=== PATIENT | female | born 1940 | race Caucasian/White ===

== ENCOUNTER 2016-09-07 10:22 | Day surgery (SDC) | payer MEDICARE, OTHER ==
[~2016-09-07] VITALS: Ht 177.8 cm; Wt 92.7 kg
--- NOTE | ~2016-09-07 | CATH ---
Cardiac Diagnostic Report Demographics Patient Name BRITTANI Lorenzana Gender Female Date of 1940 Age 76 year(s) Patient Number [id number] Date of Study 09/07/2016 Visit Number [id number] Room Number Corporate ID Ht 172.72 cm Wt 93.44 kg Accession Number [id number] BSA 2.07 m kg/m Referring Iqra Arce MD Primary Physician Physician Nikos Up MD Performing Iqra Arce MD Secondary Physician Physician Diagnostic Iqra Arce MD Assisting Physician Physician Interventional Physician Web Administrator Physician Findings and Conclusions Diagnostic Findings and Conclusion Normal coronary angiogram. Normal LVEDP. Elevated wedge pressure consistent with mitral stenosis. No sign of significant mitral regurgitation on waveforms. Diagnostic Recommendations Consultation with CT surgery regarding mitral stenosis. Procedure Description The patient was brought to the diagnostic cardiac catheterization-EP laboratory in the fasting, non-sedated state. Informed consent was obtained in the written and verbal form after the risks and benefits were explained. The patient had no further questions and agreed to proceed. The planned puncture-incision site(s) were shaved and prepped with ChloraPrep and draped in the usual sterile manner. Conscious sedation, supplemental oxygen, and pain control medications were delivered by a registered nurse under physician guidance. Surface ECG rhythm, blood pressure measurement, and pulse oximetry were monitored throughout the procedure. ANMOL. A transesophageal probe was inserted by the attending overhead crane technician without difficulty. After imaging was complete he transesophageal probe was removed. Arterial access. The access site was infiltrated with lidocaine. The right radial vessel was entered with the Seldinger technique. A sheath was advanced into the vessel and used for catheter placement. Venous access. The access site was infiltrated with 1% lidocaine. The vessel was entered with the Seldinger technique. A 6F radial sheath was advanced into the vessel and used for catheter placement. Right heart catheterization. A 7F [place]ore[place] catheter was successfully advanced to the right atrium, right ventricle, pulmonary artery, and pulmonary artery wedge position under fluoroscopic guidance. Resting hemodynamics were obtained. Measurements included pressures, arterial and venous oxygen saturation samples, and cardiac output. The [place] was removed without difficulty. Selective left coronary angiography. A 6F JL 3.5 catheter was advanced into the left coronary vessel ostium under Fluoroscopic guidance. Contrast was injected by hand. Images were obtained in multiple projections. Selective right coronary angiography. A 6F FR4 catheter was advanced into the right coronary vessel ostium under fluoroscopic guidance. Contrast was injected by hand. Images were obtained in multiple projections. Left heart catheterization. A 6F pigtail catheter was advanced across the aortic valve to the left ventricle under fluoroscopic guidance. Resting hemodynamics were obtained. Arterial and Venous hemostasis was achieved using a TR band and manual pressure. The patient was transferred to a regular nursing floor via cart accompanied by a nurse. The patient left the laboratory in stable condition. Diagnostic Cath Status: Elective Procedure Procedure Type Diagnostic procedure:Angiography:, Right and Left Heart Cath, Coronary Angios Indications: Chest pain, Mitral Regurgation, Mitral Insufficiency, Atrial fibrillation, Hyperlipidemia and Hypertension. The procedure was explained in detail to the patient. Risks, complications and alternative treatments were reviewed. Written consent was obtained. Medications Reviewed with Patient prior to Procedure. Complications: No Complication. Angiographic Findings Dominance: Right Cardiac Arteries and Lesion Findings LMCA: Normal (0% Stenosis). LAD: Normal (0% Stenosis). LCx: Normal (0% Stenosis). RCA: Normal (0% Stenosis). Procedure Data Procedure Date Date: 09/07/2016Start: 01:10 PMEnd: 02:57 PM Entry Locations - Percutaneous access was performed through the Right Radial artery (Primary location). A 6 Fr sheath was inserted. Hemostasis was successfully obtained using a TR band. - Percutaneous access was performed through the Right Femoral vein. A 7 Fr sheath was inserted. Hemostasis was successfully obtained using Manual Compression. Procedure Medications Order and Administration + + +-------+--------+ !Time !Medication !Dosage !Route ! + + +-------+--------+ !09/07/2016 !Versed !2 mg !I.V. ! !01:12 PM ! ! ! ! + + +-------+--------+ !09/07/2016 !Fentanyl !50 mcg ! ! !01:13 PM ! ! ! ! + + +-------+--------+ !09/07/2016 !Sodium Chloride !10 ml !I.V. ! !01:13 PM ! ! ! ! + + +-------+--------+ !09/07/2016 !Oxygen !4 l/min!NC ! !01:14 PM ! ! ! ! + + +-------+--------+ !09/07/2016 !Versed !2 mg !I.V. ! !01:15 PM ! ! ! ! + + +-------+--------+ !09/07/2016 !Fentanyl !25 mcg ! ! !01:15 PM ! ! ! ! + + +-------+--------+ !09/07/2016 !SF Radial Cocktail: 200mcg Nitro, 2.5 mg ! !I.A. ! !02:00 PM !Verapamil, 5000u Heparin ! ! ! + + +-------+--------+ !09/07/2016 !Versed !2 mg !I.V. ! !02:33 PM ! ! ! ! + + +-------+--------+ !09/07/2016 !Fentanyl !25 mcg !I.V. ! !02:33 PM ! ! ! ! + + +-------+--------+ Devices Used - ACATH 6F FR4 CATHETER 100CMwas used for:Right coronary angiography. - ACATH 6FR PIG 145 110CM CATHETERwas used for:LV Pressures. - ACATH 6FR FL3.5 CATHETER 100CMwas used for:Left coronary angiography. Contrast Material - Isovue 59090 ml Fluoroscopy Time: Diagnostic: 6:24 minutes. Total: 6:24 minutes. Fluoroscopy Dose: Diagnostic: 294 mGy. Total: 294 mGy. Estimated Blood Loss: 15 ml. Medical History Allergies - Other:(Tetanus vaccines and toxoid). Risk Factors The patient risk factors include:hypertension, last creatinine: 1.1 mg/dl, creatinine clearance: 63.18 ml/min and dyslipidemia. Admission Data Admission Date: 09/07/2016 Admission Time: 10:22 AM Insurance Payors: Medicare. Clinical Evaluation Leading to Procedure - There were no CAD presentation symptoms. - There were no anginal symptoms. Anti-anginal medications were prescribed during the past two weeks. The medications are: Beta Blockers and Ca channel Blockers. Hemodynamics Condition: Rest O2 Consumption: Estimated: 191.86Heart Rate: 76 bpm Oxygen Saturation +--------+-----+----+ +---+ + !Location!pCO2 !pO2 !% Saturation !Hgb!O2 Content ! +--------+-----+----+ +---+ + !LV ! ! !86.3 !13 ! ! +--------+-----+----+ +---+ + !LV ! ! !87.2 !13 ! ! +--------+-----+----+ +---+ + !PA ! ! !62.5 !13 ! ! +--------+-----+----+ +---+ + !PA ! ! !63.2 !13 ! ! +--------+-----+----+ +---+ + !AO ! ! !92 !13 ! ! +--------+-----+----+ +---+ + Pressures (mmHg) +-----+ + !Site !Pressure ! +-----+ + !AO !/ (-33) ! +-----+ + !RA !03/17 (7) ! +-----+ + !AO !/ (33) ! +-----+ + !RV !45/0 ,9 ! +-----+ + !AO !/ () ! +-----+ + !PA !50/12 (29) ! +-----+ + !AO !/ () ! +-----+ + !PCW ! (17) ! +-----+ + !AO !/ () ! +-----+ + !PA ! () ! +-----+ + !AO !/ () ! +-----+ + !PCW ! () ! +-----+ + !LV !155/4 ,11 ! +-----+ + !PA !50/20 (33) ! +-----+ + !LV !137/2 ,11 ! +-----+ + !PCW !26/32 (21) ! +-----+ + !LV !142/2 ,9 ! +-----+ + !PA !30/16 (21) ! +-----+ + !LV !148/3 ,10 ! +-----+ + !RV !49/4 ,9 ! +-----+ + !AO !148/60 (98) ! +-----+ + !LV !149/4 ,18 ! +-----+ + !AO !132/62 (86) ! +-----+ + !AO !133/68 (92) ! +-----+ + Cardiac Output +------+ + + + !Method!CO (l/min) !CI (l/min/m2) !SV (ml) ! +------+ + + + !Silver[place] !3.68 !1.8 !48.63 ! +------+ + + + Valve Gradients and Areas + +--------+--------+--------+---------+ + + !Valve !Peak !Mean !Area !Index !Flow !Source ! + +--------+--------+--------+---------+ + + !Aortic !0 !0 ! ! !239.12 !Silverio ! + +--------+--------+--------+---------+ + + !Aortic !0 !0 ! ! ! ! ! + +--------+--------+--------+---------+ + + Shunts Oxygen Values O2 Capacity 176.8 O2 Consumption 191.86 Flows (l/min) Qs 3.68 Qe/Qp 1 Qp 3.68 Qp/Qs 1 Qe 3.68 Vascular Resistance (dynes x sec x cm-5) + +-----+-----+----+----+---------+-------+ !CO method !TSVR !SVR !TPVR!PVR !TPVR/TSVR!PVR/SVR! + +-----+-----+----+----+---------+-------+ !Silverio !25.11!23.26!5.83!0.08!0.23 ! ! + +-----+-----+----+----+---------+-------+ !Qp or Qs !25.11!23.26!5.83!0.08!0.23 ! ! + +-----+-----+----+----+---------+-------+ Discharge Data Discharge Date: 09/07/2016 Hospital Status: Outpatient Signatures
--- NOTE | ~2016-09-07 | ECH ---
Transesophageal Echocardiography Report (ANMOL) Demographics Patient Name JESUS PETER Date of Study 09/07/2016 Patient Number [id number] Visit Number [id number] Date of 1940 Room Number Accession Number [id number] Gender Female Age 76 year(s) Referring Iqra Arce MD Terminal Worker Mercy Lucero Physician Nikos Up RDCS, MD Physician Interpreting Iqra Arce MD [place] Remover Physician Supervising Ordering Physician Iqra Arce MD, MD/P Nurse Stress Page Designer Conclusions Summary Informed consent obtained. Transesophageal echocardiogram was done under moderate sedation . The estimated left ventricular ejection fraction is 60%. There is no thrombus in the left atrial appendage. Informed consent was obtained, bubble study was done, there is no evidence for a PFO or ASD. Moderate mitral regurgitation by color Doppler. Mitral valve appears calcified and stenotic There is no aortic regurgitation by color Doppler. Mild tricuspid regurgitation by color Doppler. Mild-moderate atheroma noted. Procedure Type of Study ANMOL procedure:ANMOL SF. Procedure Date Date: 09/07/2016 Start: 01:10 Technical Quality: Adequate visualization Indications:Mitral Regurgation, Chest pain, Dyspnea with exertion, paroxysmal a-fib and Hypertension. Appropriate Use Criteria: 9 Height: 68 inches Weight: 206 pounds BSA: 2.07 m Rhythm: Irregular HR: 84 bpm BP: 144/83 mmHg O2 Saturation: 97 % ANMOL Performed By: Claude Escalona MD Type of Anesthesia: Moderate sedation Allergies - Other:(Tetanus vaccines and toxoid). Findings Left Ventricle No wall motion abnormalities noted. Interventricular septum intact. Left Atrium There is no thrombus in the left atrial appendage. Informed consent was obtained, bubble study was done, there is no evidence for a PFO or ASD. Mitral Valve Normal mitral valve structure and function. Moderate mitral regurgitation by color Doppler. Aortic Valve Normal aortic valve structure and function. There is no aortic regurgitation by color Doppler. Tricuspid Valve Normal tricuspid valve structure and function. Mild tricuspid regurgitation by color Doppler. Pulmonic Valve The pulmonic valve is not well visualized. Miscellaneous Mild-moderate atheroma noted. Contractility Score LV regional wall motion:(0-Non visualized 1-Normal 2-Hypokinesis 3-Akinesis 4-Dyskinesis 5-Aneurysm) Signature
== END 2016-09-07 17:49 | disposition home or self-care (01) ==
LOC: SSS 10:22
DX: R07.9 Chest pain, unspecified (principal); I48.0 Paroxysmal atrial fibrillation; K59.00 Constipation, unspecified; I08.1 Rheumatic disorders of both mitral and tricuspid valves; K21.9 Gastro-esophageal reflux disease without esophagitis; Z98.49 Cataract extraction status, unspecified eye; Z79.899 Other long term (current) drug therapy; Z98.890 Other specified postprocedural states

== ENCOUNTER → 2016-09-27 | Outpatient (CLI) | payer MEDICARE, OTHER | END | disposition home or self-care (01) | LOC: RAD.S 10:37 | DX: Z12.31 Encounter for screening mammogram for malignant neoplasm of breast (principal) ==